=== PATIENT | male | born 1990 | race Caucasian/White ===

== ENCOUNTER 2017-09-14 21:56 | Emergency (ER) | payer SELFPAY ==
[~2017-09-14] VITALS: Ht 185.4 cm; Wt 97.7 kg
[~2017-09-14 21:56] MED LIST: BACTRIM DS 8001 TAB PO; CEPHALEXIN500 M1 PO; NO HOME MEDICATIONS; NORCO 325 MG-51 TAB PO
[2017-09-14 22:03] VITALS: BP 114/75; PULSE 76; TEMP 97.6
[2017-09-15 00:13] LABS: COLLECTION METHOD CLEAN CATCH
[2017-09-15 00:58] LABS: AMORPHOUS CRYSTAL Present /uL; PH 6 (5-8); SQUAMOUS EPITHELIAL 0-2 /hpf; URINE APPEARANCE Clear; URINE BACTERIA Rare /hpf; URINE BILIRUBIN Negative (NEGATIVE); URINE BLOOD Negative (NEGATIVE); URINE COLOR Yellow; URINE GLUCOSE Negative (NEGATIVE); URINE KETONE Negative (NEGATIVE); URINE LEUKOCYTE ESTERASE Negative (NEGATIVE); URINE NITRATE Negative (NEGATIVE); URINE PROTEIN(semi-quant) Negative (NEGATIVE); URINE RBC 0-2 /hpf; URINE UROBILINOGEN Negative (NEGATIVE)
== END 2017-09-15 00:50 | disposition home or self-care (01) ==
LOC: COL.ER 21:56
PROVIDERS: Emergency Medicine
DX: N43.3 Hydrocele, unspecified (principal)

== ENCOUNTER 2019-04-09 13:48 | Emergency (ER) | payer SELFPAY ==
[~2019-04-09] VITALS: Ht 185.4 cm; Wt 104.5 kg
[2019-04-09 14:31] VITALS: BP 131/78; TEMP 98.8
[2019-04-09 17:02] VITALS: PULSE 88
== END 2019-04-09 17:02 | disposition home or self-care (01) ==
LOC: COL.ER 13:48
DX: S46.912A Strain of unspecified muscle, fascia and tendon at shoulder and upper arm level, left arm, initial encounter (principal); J45.909 Unspecified asthma, uncomplicated; F17.210 Nicotine dependence, cigarettes, uncomplicated; X50.0XXA Overexertion from strenuous movement or load, initial encounter; Y92.59 Other trade areas as the place of occurrence of the external cause

== ENCOUNTER 2020-06-29 13:28 | Emergency (ER) | payer SELFPAY ==
[~2020-06-29] VITALS: Ht 175.3 cm; Wt 90.9 kg
[2020-06-29 13:45] VITALS: TEMP 97.7
[2020-06-29] MEDS ORDERED: DECADRON 4MG TAB4 MG PO (14:26)
[2020-06-29 14:39] VITALS: BP 123/81; PULSE 74
== END 2020-06-29 14:40 | disposition home or self-care (01) ==
LOC: COL.ER 13:28
DX: J06.9 Acute upper respiratory infection, unspecified (principal); Z20.828 Contact with and (suspected) exposure to other viral communicable diseases; Z88.8 Allergy status to other drugs, medicaments and biological substances

== ENCOUNTER 2021-12-23 13:48 | Emergency (ER) | payer SELFPAY ==
[~2021-12-23] VITALS: Ht 185.4 cm; Wt 111.4 kg
[~2021-12-23 13:48] MED LIST changes: +DECADRON 4MG TAB4 MG PO
[2021-12-23 13:59] VITALS: TEMP 98.1
[2021-12-23] MEDS ORDERED: CORTISPORIN OTI10 M2 OT (14:19)
[2021-12-23 15:05] VITALS: BP 130/81; PULSE 80
== END 2021-12-23 15:10 | disposition home or self-care (01) ==
LOC: COL.ER 13:48
DX: H60.92 Unspecified otitis externa, left ear (principal); H61.22 Impacted cerumen, left ear; Z28.310 Unvaccinated for COVID-19